=== PATIENT | male | born 1950 | race Caucasian/White ===

== ENCOUNTER → 2017-11-24 | Day surgery (SDC) | payer MEDICARE ==
[~2017-11-24] MED LIST: AMOX1TAB10 PO; CLAR500T PO; IV RINGERS,LACTATED 1000ML 1,000 ML IV SCH; LIDOCAINE 1% PF 2 ML VIAL. ID PRN; MIDAZOLAM HCL/PF 2 MG/2 ML VIAL. IV PRN; PROPOFOL 40 ML IV ONE; Pantoprazole PO; fentaNYL PF VIAL 100 MCG/2 ML VIAL IV PRN
[2017-11-24 17:03] VITALS: BP 123/76
--- NOTE | 2017-11-26 14:13 | PATHOLOGY ---
[facility] Accession Number: [id number] . 01 Material submitted: . TRANSVERSE COLON POLYP . 01 Clinical history: . Screening . 02 Diagnosis: Colon biopsies, transverse colon polyp: - Tubular adenoma. . (JPM:mm; 11/26/17) M/11/26/2017 . 02 Comment: There is no high grade dysplasia or evidence of malignancy. . (JPM:mm; 11/26/17) . 02 Electronically signed: . Kevin Contreras MD, Pathologist NPI- [id number] . 01 Gross description: . Received in formalin labeled "Liz, Emeka, transverse colon polyp," are multiple segments of encarnacion soft tissue measuring 1.7 x 0.6 x 0.3 cm in aggregate dimensions. The specimen is filtered and entirely submitted in cassette A1. (TSD; 11/25/2017) TOB/TOB . 02 Pathologist provided ICD-10: D12.3 . 02 CPT . 378886 Specimen Comment: A courtesy copy of this report has been sent to Specimen Comment: [phone]. Specimen Comment: Report sent to Performed at: 01 [facility] [address], [place] [id number] MD Darrell Eason MD Phone: [phone] Performed at: 02 [facility] [address] [place], [place] [id number] MD Kevin Contreras MD Phone: [phone]
== END | disposition home or self-care (01) ==
LOC: ENDOS 15:34
PROVIDERS: ATTEND Internal Medicine Gastroenterology
DX: Z12.11 Encounter for screening for malignant neoplasm of colon (principal); D12.3 Benign neoplasm of transverse colon; K57.30 Diverticulosis of large intestine without perforation or abscess without bleeding; K64.0 First degree hemorrhoids; Z98.890 Other specified postprocedural states; M19.90 Unspecified osteoarthritis, unspecified site; Z87.891 Personal history of nicotine dependence; Z72.89 Other problems related to lifestyle; Z79.899 Other long term (current) drug therapy
CPT/HCPCS: 45385; 88305; J2704; 45380